=== PATIENT | female | born 1980 | race Two or more races ===

== ENCOUNTER 2019-11-03 15:28 | Inpatient (IN) | payer MEDICAID, OTHER ==
[~2019-11-03] VITALS: Ht 160 cm; Wt 88.0 kg
[2019-11-03] MEDS ORDERED: SODIUM CHLORIDE 0.9% 1,000 ML IVB ONE (16:47)
[2019-11-03] MEDS ORDERED: ZINC SULFATE 220mg CAP or TAB PO ONE (17:00)
[2019-11-03] MEDS ORDERED: DexAMETHasone 4 MG TAB PO ONE (17:00)
[2019-11-03] MEDS ORDERED: DOXYCYCLINE 100MG/250ML 250 ML IV ONE (17:00)
[2019-11-03] MEDS ORDERED: ASCORBIC ACID 500 MG TAB PO ONE (17:00)
[2019-11-03] MEDS ORDERED: LORazepam 0.5 MG TAB PO PRN (18:00)
[2019-11-03] MEDS ORDERED: ONDANSETRON HCL 4 MG/2 ML VIAL IV PRN (18:00)
[2019-11-03] MEDS ORDERED: DOCUSATE SOD 100 MG CAP PO PRN (18:00)
[2019-11-03] MEDS ORDERED: TEMAZEPAM 15 MG CAP PO PRN (18:00)
[2019-11-03] MEDS ORDERED: MORPHINE SULF INJ 2 MG/ML SYRINGE 1ML IV PRN (18:00)
[2019-11-03] MEDS ORDERED: HYDROcodone-ACET 5/325MG TAB PO PRN (18:00)
[2019-11-03] MEDS: SODIUM CHLORIDE 0.9% 1,000 ML IV SCH (18:15)
[2019-11-03 18:27] LABS: Basophils # (auto) 0 10 ^3/uL (0-0.2); Basophils % (auto) 0.9 % (0.0-2.0); Eosinophils # (auto) 0 10 ^3/uL (0-0.8); Eosinophils % (auto) 0.3 % (0.0-7.0); Hematocrit 42.8 % (36.0-46.0); Hemoglobin 14.7 g/dL (12.2-16.2); Lymphocytes # (auto) 1.4 10 ^3/uL (0.4-5.4); Lymphocytes % (auto) 30.3 % (10.0-50.0); Mean Corpuscular Hemoglobin 29.8 pg (28.0-32.0); Mean Corpuscular Hgb Conc. 34.3 g/dL (32.0-36.0); Mean Corpuscular Volume 86.8 fL (80.0-100.0); Monocytes # (auto) 0.5 10 ^3/uL (0-1.3); Monocytes % (auto) 10.4 % (0.0-12.0); Neutrophils # (auto) 2.7 10 ^3/uL (1.6-8.6); Neutrophils % (auto) 58.1 % (37.0-80.0); Nucleated Red Blood Cells % 0.1 %; Platelet Count (auto) 179 10^3/uL (140-450); Red Blood Cells 4.93 10^6/uL (4.0-5.20); Red Cell Distribution Width 13.7 % (11.8-14.3); White Blood Cell 4.6 10^3/uL (4.4-10.8)
[2019-11-03 18:37] LABS: Alanine Aminotransferase 65 U/L (13-56); Albumin 3.8 g/dL (3.4-5.0); Anion Gap 7 (5-15); Aspartate Aminotransferase 50 U/L (15-37); BUN/Creatinine Ratio 6.6; Blood Urea Nitrogen 5 mg/dL (7-18); Calcium 9.2 mg/dL (8.5-10.1); Carbon Dioxide 28 mmol/L (21-32); Chloride 106 mmol/L (98-107); GFR African American 108 mL/min; GFR Non-African American 89 mL/min; Glucose 104 mg/dL (74-106); Magnesium 2.2 mg/dL (1.6-2.6); Potassium 3.4 mmol/L (3.5-5.1); Sodium 141 mmol/L (136-145)
[2019-11-03 18:42] LABS: Alkaline Phosphatase 93 U/L (45-117); Bilirubin, Total 0.3 mg/dL (0.2-1.0); Total Protein 8.4 g/dL (6.4-8.2)
[2019-11-03 18:43] LABS: INR 0.97 (0.9-1.15); Partial Thromboplastin Time 28.7 sec (23.64-32.05)
[2019-11-03] MEDS: DOXYCYCLINE 100 MG TAB/CAP PO SCH (21:50)
[2019-11-03] MEDS: ALBUTEROL SULF HFA 90MCG INH 200DOSE IN SCH (22:18)
[2019-11-04 03:50] VITALS: BP 129/85
[2019-11-04] MEDS: ACETAMINOPHEN 500 MG TAB PO PRN ×2 (05:45→15:30)
[2019-11-04] MEDS: ALBUTEROL SULF HFA 90MCG INH 200DOSE IN SCH ×3 (06:00→22:00)
[2019-11-04 08:36] LABS: Basophils # (auto) 0 10 ^3/uL (0-0.2); Basophils % (auto) 0.8 % (0.0-2.0); Eosinophils # (auto) 0 10 ^3/uL (0-0.8); Hematocrit 40.3 % (36.0-46.0); Hemoglobin 13.6 g/dL (12.2-16.2); Lymphocytes # (auto) 0.9 10 ^3/uL (0.4-5.4); Lymphocytes % (auto) 26.8 % (10.0-50.0); Mean Corpuscular Hemoglobin 29.4 pg (28.0-32.0); Mean Corpuscular Hgb Conc. 33.6 g/dL (32.0-36.0); Mean Corpuscular Volume 87.3 fL (80.0-100.0); Monocytes # (auto) 0.3 10 ^3/uL (0-1.3); Monocytes % (auto) 9.6 % (0.0-12.0); Neutrophils # (auto) 2.2 10 ^3/uL (1.6-8.6); Neutrophils % (auto) 62.8 % (37.0-80.0); Platelet Count (auto) 187 10^3/uL (140-450); Red Blood Cells 4.62 10^6/uL (4.0-5.20); Red Cell Distribution Width 13.6 % (11.8-14.3); White Blood Cell 3.5 10^3/uL (4.4-10.8)
[2019-11-04 08:53] LABS: Albumin 3.7 g/dL (3.4-5.0); Calcium 8.5 mg/dL (8.5-10.1); Magnesium 2.2 mg/dL (1.6-2.6); Potassium 3.3 mmol/L (3.5-5.1)
[2019-11-04 08:57] LABS: BUN/Creatinine Ratio 11.3; Bilirubin, Total 0.3 mg/dL (0.2-1.0)
[2019-11-04 09:00] VITALS: BP 138/88
[2019-11-04 09:35] VITALS: BP 130/88
[2019-11-04] MEDS: ZINC SULFATE 220mg CAP or TAB PO SCH (09:48)
[2019-11-04] MEDS: ASCORBIC ACID 1,000 MG TAB PO SCH (09:48)
[2019-11-04] MEDS: DOXYCYCLINE 100 MG TAB/CAP PO SCH ×2 (09:48→22:21)
[2019-11-04] MEDS ORDERED: ENOXAPARIN SOD 40 MG/0.4 ML SYRINGE SC SCH (10:00)
[2019-11-04] MEDS: SODIUM CHLORIDE 0.9% 1,000 ML IV SCH (11:35)
[2019-11-04] MEDS ORDERED: POTASSIUM CHL 20 Meq TABLET PO ONE (15:00)
[2019-11-04 15:15] LABS: CRP High Sensitivity 0.87 mg/dL (< 0.3)
[2019-11-04 17:00] VITALS: BP 135/80
[2019-11-04 22:00] VITALS: BP 138/90
[2019-11-04] MEDS: BUDESONIDE (INHALATION) 0.5 MG/2 ML NEB NEB SCH (22:00)
[2019-11-04] MEDS: ENOXAPARIN SOD 40 MG/0.4 ML SYRINGE SC SCH (22:22)
[2019-11-05] MEDS: ACETAMINOPHEN 500 MG TAB PO PRN ×2 (00:03→09:40)
[2019-11-05 04:43] VITALS: BP 127/74
[2019-11-05] MEDS: ALBUTEROL SULF HFA 90MCG INH 200DOSE IN SCH ×2 (06:46→14:15)
[2019-11-05] MEDS: BUDESONIDE (INHALATION) 0.5 MG/2 ML NEB NEB SCH (06:46)
[2019-11-05 06:50] LABS: Basophils # (auto) 0 10 ^3/uL (0-0.2); Basophils % (auto) 0.7 % (0.0-2.0); Eosinophils # (auto) 0 10 ^3/uL (0-0.8); Eosinophils % (auto) 0.7 % (0.0-7.0); Hematocrit 40.5 % (36.0-46.0); Hemoglobin 13.8 g/dL (12.2-16.2); Lymphocytes # (auto) 2.7 10 ^3/uL (0.4-5.4); Lymphocytes % (auto) 52.6 % (10.0-50.0); Mean Corpuscular Hemoglobin 29.6 pg (28.0-32.0); Mean Corpuscular Volume 87.2 fL (80.0-100.0); Monocytes # (auto) 0.5 10 ^3/uL (0-1.3); Monocytes % (auto) 9.7 % (0.0-12.0); Neutrophils # (auto) 1.9 10 ^3/uL (1.6-8.6); Neutrophils % (auto) 36.3 % (37.0-80.0); Nucleated Red Blood Cells % 0.2 %; Platelet Count (auto) 178 10^3/uL (140-450); Red Blood Cells 4.65 10^6/uL (4.0-5.20); Red Cell Distribution Width 13.6 % (11.8-14.3); White Blood Cell 5.2 10^3/uL (4.4-10.8)
[2019-11-05 07:11] LABS: Albumin 3.5 g/dL (3.4-5.0); BUN/Creatinine Ratio 12.9; Bilirubin, Total 0.3 mg/dL (0.2-1.0); CRP High Sensitivity 0.44 mg/dL (< 0.3); Calcium 8.4 mg/dL (8.5-10.1); Total Protein 7.6 g/dL (6.4-8.2)
--- NOTE | 2019-11-05 07:20 | NUR ---
Opening Shift Note Assumed care of patient, awake and alert. No S/S of distress/SOB or pain. Instructed on POC and to call for assist PRN, will continue to monitor for changes Q1hr and PRN.
--- NOTE | 2019-11-05 07:21 | NUR ---
End of Shift Note Endorsed care to dayshift RN. At this time patient has no s/s of distress or SOB.
[2019-11-05 07:33] LABS: Potassium 2.8 mmol/L (3.5-5.1)
[2019-11-05] MEDS ORDERED: POTASSIUM CHL 20 Meq TABLET PO ONE ×2 (07:45→13:00)
[2019-11-05 08:00] VITALS: BP 136/74
[2019-11-05] MEDS ORDERED: CHOLECALCIFEROL (VITD3) 2,000 UNIT CAP PO SCH (10:00)
[2019-11-05] MEDS: ZINC SULFATE 220mg CAP or TAB PO SCH (10:41)
[2019-11-05] MEDS: ASCORBIC ACID 1,000 MG TAB PO SCH (10:41)
[2019-11-05] MEDS: DOXYCYCLINE 100 MG TAB/CAP PO SCH (10:41)
[2019-11-05] MEDS: ENOXAPARIN SOD 40 MG/0.4 ML SYRINGE SC SCH (10:43)
[2019-11-05 12:00] VITALS: BP 133/84
[2019-11-05] MEDS ORDERED: ALBUAER3 IN (13:18)
[2019-11-05] MEDS ORDERED: BUDE1AER5 IN (13:18)
[2019-11-05] MEDS ORDERED: ZINC220C10 PO (13:18)
[2019-11-05] MEDS ORDERED: DOX100T PO (13:18)
[2019-11-05] MEDS ORDERED: CHOL1CAP47 PO (13:18)
--- NOTE | 2019-11-05 17:18 | NUR ---
Discharge instructions given as ordered. Encourage to follow up with PMD as instructed. All questions and concerns addressed. Patient verbalized understanding. Medication reconciliation form completed and copy given to patient. IV removed with catheter intact, pressure dressing applied, Telemetry unit returned to ICU. Patient taken to vehicle via wheelchair with all personal belongings, accompanied by staff to family member. No distress noted at time of departure.
== END 2019-11-05 17:30 | disposition home or self-care (01) | DRG 137 ==
LOC: ER 15:28 → TELE 15:29 → TELE-EAST 11-04 09:04
PROVIDERS: ADMIT Hospitalist; ATTEND Internal Medicine
DX: U07.1 COVID-19 (principal); J12.89 Other viral pneumonia; E66.01 Morbid (severe) obesity due to excess calories; Z82.49 Family history of ischemic heart disease and other diseases of the circulatory system; Z68.34 Body mass index [BMI] 34.0-34.9, adult
CPT/HCPCS: 36415; 71045; 80053; 80061; 82728; 83036; 83605; 83615; 83735; 84132; 84484; 84702; 85025; 85379; 85610; 85730; 86141; 87040; 93005; 94640; 96361; 96365; 96366; G0378; J3490

== ENCOUNTER 2022-06-17 12:39 | Emergency (ER) | payer MEDICAID ==
[~2022-06-17] VITALS: Ht 157.5 cm; Wt 86.0 kg
[~2022-06-17 12:39] MED LIST: ALBUAER3 IN; BUDE1AER5 IN; CHOL1CAP47 PO; DOX100T PO; ZINC220C10 PO
[2022-06-17 13:00] VITALS: BP 136/93
[2022-06-17 13:12] LABS: Basophils # (auto) 0.1 10 ^3/uL (0-0.2); Basophils % (auto) 1.4 % (0.0-2.0); Eosinophils # (auto) 0.2 10 ^3/uL (0-0.8); Eosinophils % (auto) 1.9 % (0.0-7.0); Hematocrit 39.6 % (36.0-46.0); Hemoglobin 13.5 g/dL (12.2-16.2); Lymphocytes # (auto) 3.3 10 ^3/uL (0.4-5.4); Lymphocytes % (auto) 37.6 % (10.0-50.0); Mean Corpuscular Hemoglobin 29.8 pg (28.0-32.0); Mean Corpuscular Volume 87.4 fL (80.0-100.0); Monocytes # (auto) 0.7 10 ^3/uL (0-1.3); Monocytes % (auto) 7.7 % (0.0-12.0); Neutrophils # (auto) 4.6 10 ^3/uL (1.6-8.6); Neutrophils % (auto) 51.4 % (37.0-80.0); Nucleated Red Blood Cells % 0.1 %; Red Blood Cells 4.53 10^6/uL (4.0-5.20); Red Cell Distribution Width 13.7 % (11.8-14.3); White Blood Cell 8.9 10^3/uL (4.4-10.8)
[2022-06-17 13:43] LABS: Albumin 3.6 g/dL (3.4-5.0); Calcium 9.3 mg/dL (8.5-10.1); Magnesium 2.2 mg/dL (1.6-2.6); Potassium 3.7 mmol/L (3.5-5.1); Total Protein 7.3 g/dL (6.4-8.2)
[2022-06-17 13:48] LABS: BUN/Creatinine Ratio 9.5; Bilirubin, Total 0.4 mg/dL (0.2-1.0)
[2022-06-17 19:40] LABS: Urine Bacteria FEW /hpf (None Seen); Urine Blood Negative /uL (Negative); Urine Specific Gravity 1.005 (1.001-1.035); Urine WBC 1 /hpf (0 - 5)
== END 2022-06-17 22:05 | disposition home or self-care (01) ==
LOC: ER 12:39
DX: R00.2 Palpitations (principal); Z79.899 Other long term (current) drug therapy
CPT/HCPCS: 36415; 71046; 80053; 81001; 83735; 84484; 85025; 85379; 93005